=== PATIENT | male | born 1985 | race Two or more races ===

== ENCOUNTER 2020-10-13 14:28 | Emergency (ER) | payer OTHER ==
[~2020-10-13] VITALS: Ht 177.8 cm; Wt 96.1 kg
[2020-10-13 14:48] VITALS: BP 132/85
--- NOTE | 2020-10-13 15:45 | RAD ---
EXAM: Head and cervical spine CT without contrast. HISTORY: Fall. TECHNIQUE: Computed tomographic images of the head and cervical spine were obtained without intraveno us contrast. COMPARISON: None. FINDINGS: Head: There is no hemorrhage. There is no mass effect or midline shift. There is no hydrocephalus. Th e montgomery-white matter differentiation pattern is intact. There is no suspicious calvarial lesion. The o rbits are unremarkable. There is paranasal sinus mucosal thickening. The mastoid air cells are clear. Cervical spine: There is no significant listhesis. The vertebral bodies are normal in height and the disc spaces are preserved. There is no fracture or suspicious osseous lesion. There is mild endplate remodeling at multiple levels. There is minimal right foraminal stenosis at C2-C3. No central canal s tenosis is seen. IMPRESSION: No acute intracranial finding or evidence of acute cervical spine trauma. Electronically signed by: Tomasa Mcrae MD (10/13/2020 3:43 PM) [id number]
[2020-10-13 16:03] LABS: ALBUMIN 4.1 g/dL (3.4-5.0); ALBUMIN/GLOBULIN RATIO 1.1 (1.0-1.7); CALCIUM 9.2 mg/dL (8.5-10.1); GFR 86.6; TOTAL BILIRUBIN 0.5 mg/dL (0.2-1.0); TOTAL PROTEIN 7.7 g/dL (6.4-8.2)
[2020-10-13 16:11] LABS: BASO % 0 % (0-3); EOS # 0.1 x10^3/uL (0.0-0.7); EOS % 1 % (0-3); HEMOGLOBIN 15.7 g/dL (13.0-17.5); LYMPH # 1.1 x10^3/uL (1.0-4.8); LYMPH % 7 % (24-48); MEAN CORPUSCULAR HEMOGLOBIN 29 pg (25-35); MEAN CORPUSCULAR HGB CONC 34 g/dL (31-37); MEAN CORPUSCULAR VOLUME 84 fL (79-100); MONO # 0.9 x10^3/uL (0.0-1.1); MONO % 6 % (0-9); NEUT # 13.7 x10^3uL (1.8-7.7); NEUT % 86 % (31-73); PLATELET COUNT 349 x10^3/uL (140-400); RED BLOOD COUNT 5.48 x10^6/uL (4.30-5.70); RED CELL DISTRIBUTION WIDTH 12.3 % (11.5-14.5); WHITE BLOOD COUNT 15.8 x10^3/uL (4.0-11.0)
--- NOTE | 2020-10-13 16:26 | PHYS DOC ---
Past History Past Medical History: No Pertinent History, Seizure Additional Past Medical Histor: seizures when he was a child Past Surgical History: No Surgical History Alcohol Use: None General Adult EDM: Chief Complaint: SYNCOPE HPI: HPI: Patient is a 34-year-old male who presents after syncopal episode at work. 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 Patient states "I remember walking outside to leave in my car realized I had no memory of what had just happened". "I had a really bad headache and I vomited once". "I called my coworker and told him to come meet me because I was feeling uneasy on my feet". Friend states "he was acting kind of out of it and he had a big knot on the back of his head". Patient states he does not remember falling. Patient reports he had a tree of seizures when he was young and was taking Depakote but his doctor took him off the meds in 2012. Patient denies chest pain, shortness of breath. Denies any nausea or vomiting or headache at this time. Denies medical history. Review of Systems: Review of Systems: Constitutional: Denies fever or chills Eyes: Denies change in visual acuity HENT: Denies nasal congestion or sore throat Respiratory: Denies cough or shortness of breath Cardiovascular: Denies chest pain or edema GI: Denies abdominal pain, nausea, vomiting, bloody stools or diarrhea : Denies dysuria Musculoskeletal: Denies back pain or joint pain Integument: Denies rash Neurologic: Denies headache, focal weakness or sensory changes Endocrine: Denies polyuria or polydipsia Lymphatic: Denies swollen glands Psychiatric: Denies depression or anxiety Allergies: Allergies: Allergies Coded Allergies Type Severity Reaction Last Updated Verified No Known Drug Allergies 03/22/13 No Physical Exam: PE: Constitutional: Well developed, well nourished, no acute distress, non-toxic appearance. [] HENT: Normocephalic, atraumatic, hematoma to posterior head Eyes: PERRLA, EOMI, conjunctiva normal, no discharge. [] Neck: Normal range of motion, no tenderness, supple, no stridor. [] Cardiovascular:Heart rate regular rhythm, no murmur [] Lungs & Thorax: Bilateral breath sounds clear to auscultation [] Abdomen: Bowel sounds normal, soft, no tenderness, no masses, no pulsatile masses. [] Skin: Warm, dry, no erythema, no rash. [] Back: No tenderness, no CVA tenderness. [] Extremities: No tenderness, no cyanosis, no clubbing, ROM intact, no edema. [] Neurologic: Alert and oriented X 3, normal motor function, normal sensory function, no focal deficits noted. [] Psychologic: Affect normal, judgement normal, mood normal. [] Current Patient Data: Labs: Laboratory Tests Test 10/13/20 15:17 Sodium Level 143 mmol/L (136-145) Potassium Level 4.0 mmol/L (3.5-5.1) Chloride Level 105 mmol/L (98-107) Carbon Dioxide Level 29 mmol/L (21-32) Anion Gap 9 (6-14) Blood Urea Nitrogen 7 mg/dL (8-26) L Creatinine 1.0 mg/dL (0.7-1.3) Estimated GFR (Cockcroft-Gault) 86.6 BUN/Creatinine Ratio 7 (6-20) Glucose Level 113 mg/dL (70-99) H Calcium Level 9.2 mg/dL (8.5-10.1) Total Bilirubin 0.5 mg/dL (0.2-1.0) Aspartate Amino Transferase (AST) 35 U/L (15-37) Alanine Aminotransferase (ALT) 62 U/L (16-63) Alkaline Phosphatase 74 U/L (46-116) Total Protein 7.7 g/dL (6.4-8.2) Albumin 4.1 g/dL (3.4-5.0) Albumin/Globulin Ratio 1.1 (1.0-1.7) Vital Signs: Vital Signs Date Time Temp Pulse Resp B/P (MAP) Pulse Ox O2 Delivery O2 Flow Rate FiO2 10/13/20 14:48 98.1 78 18 132/85 (101) 99 EKG: EKG: [] Radiology/Procedures: Radiology/Procedures: [] Heart Score: C/O Chest Pain: No HEART Score for Chest Pain: HEART Score for Chest Pain Response (Comments) Value History Slighlty/Non-Suspicious 0 ECG Normal 0 Age < 45 0 Risk Factors No Risk Factors 0 Troponin < Normal Limit 0 Total 0 Risk Factors: Risk Factors: DM, Current or recent (<one month) smoker, HTN, HLP, family history of CAD, obesity. Risk Scores: Score 0 - 3: 2.5% MACE over next 6 weeks - Discharge Home Score 4 - 6: 20.3% MACE over next 6 weeks - Admit for Clinical Observation Score 7 - 10: 72.7% MACE over next 6 weeks - Early Invasive Strategies Course & Med Decision Making: Course & Med Decision Making Pertinent Labs and Imaging studies reviewed. (See chart for details) [] 34-year-old male presents after syncopal episode. Patient has a hematoma to his posterior head. Patient has no memory of falling. CT of head and neck ordered to rule out intracranial bleeding or skull fracture. Patient reports he does have a history of a seizure disorder when he was a child. Patient was taken off Depakote in 2012 and has not had a seizure since he was a child. CT of head and neck was negative. Anion gap of 9. Troponin is negative. Heart score of 0. All other labs unremarkable. Discussed results with patient. Gave patient strict return precautions. Splane to patient that he would need to follow-up with neurology. I gave patient phone number for Dr. Love's office. Patient agrees with discharge plan and is appreciative. Patient is hemodynami gilberto stable and able to walk out of the emergency room on his own. Dragon Disclaimer: Teodoro Disclaimer: This electronic medical record was generated, in whole or in part, using a voice recognition dictation system. Departure Departure: Impression: Primary Impression: Syncope Qualified Codes: R55 - Syncope and collapse Additional Impressions: Headache Qualified Codes: R51.9 - Headache, unspecified Nausea & vomiting Qualified Codes: R11.2 - Nausea with vomiting, unspecified Disposition: 01 HOME / SELF CARE / HOMELESS Condition: STABLE Referrals: FRANCHESCA NAYAK MD (PCP) Patient Instructions: Syncope Additional Instructions: You were seen in the emergency room after syncopal episode. CT of your head was negative. All of your labs were unremarkable. I am providing Dr. Love's (neurology) phone number for you to follow-up with him. Please return emergency room with worsening symptoms or any concerns you may have. [phone] EMERGENCY DEPARTMENT GENERAL DISCHARGE INSTRUCTIONS Thank you for coming to [facility] (ED) today and trusting us with you care. We trust that you had a positivie experience in our Emergency Department. If you wish to speak to the department management, you may call the director at [phone]. YOUR FOLLOW UP INSTRUCTIONS ARE FOLLOWS: 1. Do you have a private Doctor? If you do not have a private doctor, please ask for a resource list of physicians or clinics that may be able to assist you with fo llow up care. 2. The Emergency Physician has interpreted your x-rays. The X-Ray specialist will also review them. If there is a change in the findings, you will be notified in 48 hours when at all possible. 3. A lab test or culture has been done, your results will be reviewed and you will be notified if you need a change in treatment. ADDITIONAL INSTRUCTIONS AND INFORMATION: 1. Your care today has been supervised by a physician who is specially trained in emergency care. Many problems require more than one evaluation for a complete diagnosis and treatment. We recommend that you schedule your follow up appointment as recommended to ensure complete treatment of you illness or injury. If you are unable to obtain follow up care and continue to have a problem, or if your condition worsens, we recommend that you return to the ED. 2. We are not able to safely determine your condition over the phone nor are we able to give sound medical advice over the phone. For these safety reasons, if you call for medical advice we will ask you to come to the ED for further evaluation. 3. If you have any questions regarding these discharge instructions please call the ED at [phone]. SAFETY INFORMATION: In the interest of safety, wellness, and injury prevention; we encourage you to wear your sealbelt, if you smoke; quite smoking, and we encourage family to use a protecti ve helmet for bicycling and other sporting events that present an increased risk for head injury. IF YOUR SYMPTOMS WORSEN OR NEW SYMPTOMS DEVELOP, OR YOU HAVE CONCERNS ABOUT YOUR CONDITION; OR IF YOUR CONDITION WORSENS WHILE YOU ARE WAITING FOR YOUR FOLLOW UP APPOINTMENT; EITHER CONTACT YOUR PRIMARY CARE DOCTOR, THE PHYSICIAN WHOSE NAME AND NUMBER YOU WERE GIVEN, OR RETURN TO THE ED IMMEDIATELY. JOVANNY MITCHELL APRN Oct 13, 2020 16:26
[2020-10-13 16:49] LABS: % ATYL 1 % (0-0); % BANDS 23 % (0-9); % EOS 1 % (0-5); % LYMPHS 11 % (24-48); % MONOS 6 % (0-10); % SEGS 58 % (35-66)
[2020-10-13 16:54] LABS: PLT ESTIMATE ADEQUATE (ADEQUATE)
--- NOTE | 2020-10-13 20:45 | EKG ---
[address] [address] Test Date: 2020-10-13 Test Time: 16:32:41 Pat Name: EVERARDO TANG Department: Room: Gender: M [employer] Supervisor: GRACE : 1985 Requested By: JOVANNY MITCHELL Order Number: [id number] Reading MD: Measurements Intervals [place] Rate: 61 P: -33 HI: 132 QRS: 34 QRSD: 86 T: 14 QT: 384 QTc: 388 Interpretive Statements SINUS RHYTHM OTHERWISE NORMAL ECG RI6.02 No previous ECG available for comparison
== END 2020-10-13 16:54 | disposition home or self-care (01) ==
LOC: ER 14:28
DX: S00.03XA Contusion of scalp, initial encounter (principal); R55 Syncope and collapse; R51.9 Headache, unspecified; R11.2 Nausea with vomiting, unspecified; X58.XXXA Exposure to other specified factors, initial encounter; Y93.89 Activity, other specified; Y92.89 Other specified places as the place of occurrence of the external cause; Y99.8 Other external cause status
CPT/HCPCS: 36415; 70450; 72125; 80053; 84484; 85007; 85025; 93005; 99285

== ENCOUNTER 2021-05-18 13:31 | Emergency (ER) | payer OTHER ==
[~2021-05-18] VITALS: Ht 177.8 cm; Wt 94.0 kg
[2021-05-18 13:44] VITALS: BP 120/84
[2021-05-18] MEDS: ACETAMINOPHEN 500 MG TABLET PO ONE (14:00)
--- NOTE | 2021-05-18 14:05 | PHYS DOC ---
Past History Past Medical History: Seizure Additional Past Medical Histor: seizures when he was a child (ROBERT MINAYA APRN) Past Surgical History: No Surgical History (ROBERT MINAYA APRN) Alcohol Use: None (ROBERT MINAYA APRN) General Adult EDM: Chief Complaint: SEIZURE HPI: HPI: Patient is a 35-year-old male that presents today following a seizure. According to the friend that is at the bedside he said he heard his friend fall out of bed and he noted that he was having full body movement that resembled seizure-like activity. He states this happened around 115 today. Friend states that after the episode occurred which it lasted about a minute, patient was still unsteady on his feet and was kind of not acting right. They are here in the emergency department for further evaluation of this. Patient states he had a history of seizures as a child and was removed from his medication in 2012. He states that he was evaluated [address] Cerrato a neurologist who stated that he did not need to be back on his seizure medications at that time. Patient denies alcohol or drug use. Patient states he has not been sick over the last 24 to 48 hours. (ROBERT MINAYA APRN) Review of Systems: Review of Systems: Constitutional: Denies fever or chills Eyes: Denies change in visual acuity HENT: Denies nasal congestion or sore throat Respiratory: Denies cough or shortness of breath Cardiovascular: Denies chest pain or edema GI: Denies abdominal pain, nausea, vomiting, bloody stools or diarrhea : Denies dysuria Musculoskeletal: Denies back pain or joint pain Integument: Denies rash Neurologic: Seizure activity and headache denies focal weakness or sensory changes Endocrine: Denies polyuria or polydipsia Lymphatic: Denies swollen glands Psychiatric: Denies depression or anxiety (ROBERT MINAYA APRN) Current Medications: Current Meds: Current Medications Medications (Trade) Dose Ordered Sig/Devin Start Time Stop Time Status Last Admin Dose Admin Acetaminophen (Tylenol) 1,000 mg 1X ONCE 05/18/21 14:00 05/18/21 14:01 UNV (ROBERT MINAYA APRN) Allergies: Allergies: Allergies Coded Allergies Type Severity Reaction Last Updated Verified No Known Drug Allergies 03/22/13 No (ROBERT MINAYA APRN) Physical Exam: PE: Constitutional: Well developed, well nourished, no acute distress, non-toxic appearance. [] HENT: Normocephalic, inspection of palpation of the forehead noted abrasions to the forehead with some tenderness with palpation to the left side of the forehead. No crepitus or uncontrolled bleeding noted. Eyes: PERRLA, EOMI, conjunctiva normal, no discharge. [] Neck: Normal range of motion, no tenderness, supple, no stridor. [] Cardiovascular:Heart rate regular rhythm, no murmur [] Lungs & Thorax: Bilateral breath sounds clear to auscultation [] Abdomen: Bowel sounds normal, soft, no tenderness, no masses, no pulsatile masses. [] Skin: Abrasion noted to forehead warm, dry, no erythema, no rash. [] Back: No tenderness, no CVA tenderness. [] Extremities: No tenderness, no cyanosis, no clubbing, ROM intact, no edema. [] Neurologic: Alert and oriented X 3, normal motor function, normal sensory function, no focal deficits noted. [] Psychologic: Affect normal, judgement normal, mood normal. [] (ROBERT MINAYA APRN) Current Patient Data: Labs: Laboratory Tests Test 05/18/21 14:03 05/18/21 15:11 White Blood Count 6.0 x10^3/uL Red Blood Count 5.42 x10^6/uL Hemoglobin 15.8 g/dL Hematocrit 45.3 % Mean Corpuscular Volume 84 fL Mean Corpuscular Hemoglobin 29 pg Mean Corpuscular Hemoglobin Concent 35 g/dL Red Cell Distribution Width 12.2 % Platelet Count 377 x10^3/uL Neutrophils (%) (Auto) 48 % Lymphocytes (%) (Auto) 35 % Monocytes (%) (Auto) 9 % Eosinophils (%) (Auto) 8 % Basophils (%) (Auto) 1 % Neutrophils # (Auto) 2.9 x10^3uL Lymphocytes # (Auto) 2.1 x10^3/uL Monocytes # (Auto) 0.5 x10^3/uL Eosinophils # (Auto) 0.5 x10^3/uL Basophils # (Auto) 0.0 x10^3/uL Sodium Level 141 mmol/L Potassium Level 3.5 mmol/L Chloride Level 104 mmol/L Carbon Dioxide Level 23 mmol/L Anion Gap 14 Blood Urea Nitrogen 9 mg/dL Creatinine 1.0 mg/dL Estimated GFR (Cockcroft-Gault) 86.1 BUN/Creatinine Ratio 9 Glucose Level 146 mg/dL Calcium Level 8.9 mg/dL Total Bilirubin 0.6 mg/dL Aspartate Amino Transf (AST/SGOT) 25 U/L Alanine Aminotransferase (ALT/SGPT) 59 U/L Alkaline Phosphatase 63 U/L Total Protein 7.6 g/dL Albumin 4.0 g/dL Albumin/Globulin Ratio 1.1 Urine Opiates Screen Neg Urine Methadone Screen Neg Urine Barbiturates Neg Urine Phencyclidine Screen Neg Urine Amphetamine/Methamphetamine Neg Urine Benzodiazepines Screen Neg Urine Cocaine Screen Neg Urine Cannabinoids Screen Pos Urine Ethyl Alcohol Neg Current Medications Medications (Trade) Dose Ordered Sig/Devin Route PRN Reason Start Time Stop Time Status Last Admin Dose Admin Acetaminophen (Tylenol) 1,000 mg 1X ONCE PO 05/18/21 14:00 05/18/21 14:22 DC 05/18/21 14:00 Vital Signs: Vital Signs Date Time Temp Pulse Resp B/P (MAP) Pulse Ox O2 Delivery O2 Flow Rate FiO2 05/18/21 13:44 98.2 89 16 120/84 (96) 95 Room Air Vital Signs Date Time Temp Pulse Resp B/P (MAP) Pulse Ox O2 Delivery O2 Flow Rate FiO2 05/18/21 13:44 98.2 89 16 120/84 (96) 95 Room Air (ROBERT MINAYA APRN) EKG: EKG: [] (ROBERT MINAYA GLAZE GRINDER) Radiology/Procedures: Radiology/Procedures: [REASON: fall from bed and seizure PROCEDURE: CT HEAD AND MAXILLOFACIAL WO CT HEAD AND MAXILLOFACIAL WO History: Reason: fall from bed and seizure / Spl. Instructions: / History: . Pain Comparison: October 13, 2020 Technique: Noncontrast CT imaging was performed of the head and maxillofacial. Coronal and sagittal reconstructions were performed. Exposure: One or more of the following individualized dose reduction techniques were utilized for this examination: 1. Automated exposure control 2. Adjustment of the mA and/or kV according to patient size 3. Use of iterative reconstruction technique. Findings: Head CT: No intracranial hemorrhage. No mass effect. No hydrocephalus. Extra- axial spaces are unremarkable. Maxillofacial CT: No acute maxillofacial fracture. Orbits are unremarkable. Mild scattered paranasal sinus mucosal thickening. Mastoid air cells are clear. No acute calvarial fracture. Impression: Head CT: 1. No acute intracranial abnormality. Maxillofacial CT: 1. No acute maxillofacial fracture. Electronically signed by: Ten Osborne DO (05/18/2021 2:34 PM) [facility] (ROBERT MINAYA APRN) Heart Score: C/O Chest Pain: N/A Risk Factors: Risk Factors: DM, Current or recent (<one month) smoker, HTN, HLP, family history of CAD, obesity. Risk Scores: Score 0 - 3: 2.5% MACE over next 6 weeks - Discharge Home Score 4 - 6: 20.3% MACE over next 6 weeks - Admit for Clinical Observation Score 7 - 10: 72.7% MACE over next 6 weeks - Early Invasive Strategies (ROBERT MINAYA APRN) Course & Med Decision Making: Course & Med Decision Making Pertinent Labs and Imaging studies reviewed. (See chart for details) Did inform patient that since she had seizure activity today that he will need to restrain from driving for the next 6 months. Patient verbalized understanding of this. (ROBERT MINAYA APRN) Course & Med Decision Making I was the Attending physician on the above date of service of this patient. This patient was evaluated, examined, treated, and dispositioned from the emergency department by the mid-level practitioner. Although I was working at the time , no assistance was requested. Electronically signed, Mk Beckman DO (MK BECKMAN DO) Teodoro Disclaimer: Teodoro Disclaimer: This electronic medical record was generated, in whole or in part, using a voice recognition dictation system. (ROBERT MINAYA APRN) Departure Departure: Impression: Primary Impression: Seizure Disposition: 01 HOME / SELF CARE / HOMELESS Condition: STABLE Referrals: FRANCHESCA NAYAK MD (PCP) PADMINI CERRATO MD Patient Instructions: Seizure, Adult Additional Instructions: Follow-up tomorrow at 3 PM, May 19, [address] Cerrato for further evaluation of your seizure. Do not drive for the next 6 months due to your seizure activity Tylenol and/or ibuprofen as needed for pain ROBERT MINAYA APRN May 18, 2021 14:05 MK BECKMAN DO May 20, 2021 20:00
[2021-05-18 14:33] LABS: BASO % 1 % (0-3); EOS # 0.5 x10^3/uL (0.0-0.7); EOS % 8 % (0-3); HEMATOCRIT 45.3 % (39.0-53.0); HEMOGLOBIN 15.8 g/dL (13.0-17.5); LYMPH # 2.1 x10^3/uL (1.0-4.8); LYMPH % 35 % (24-48); MEAN CORPUSCULAR HEMOGLOBIN 29 pg (25-35); MEAN CORPUSCULAR HGB CONC 35 g/dL (31-37); MEAN CORPUSCULAR VOLUME 84 fL (79-100); MONO # 0.5 x10^3/uL (0.0-1.1); MONO % 9 % (0-9); NEUT # 2.9 x10^3uL (1.8-7.7); NEUT % 48 % (31-73); PLATELET COUNT 377 x10^3/uL (140-400); RED BLOOD COUNT 5.42 x10^6/uL (4.30-5.70); RED CELL DISTRIBUTION WIDTH 12.2 % (11.5-14.5)
--- NOTE | 2021-05-18 14:36 | RAD ---
CT HEAD AND MAXILLOFACIAL WO History: Reason: fall from bed and seizure / Spl. Instructions: / History: . Pain Comparison: October 13, 2020 Technique: Noncontrast CT imaging was performed of the head and maxillofacial. Coronal and sagittal r econstructions were performed. Exposure: One or more of the following individualized dose reduction techniques were utilized for thi s examination: 1. Automated exposure control 2. Adjustment of the mA and/or kV according to patient size 3. Use of iterative reconstruction technique. Findings: Head CT: No intracranial hemorrhage. No mass effect. No hydrocephalus. Extra-axial spaces are unrema rkable. Maxillofacial CT: No acute maxillofacial fracture. Orbits are unremarkable. Mild scattered paranasal sinus mucosal thickening. Mastoid air cells are pratik ar. No acute calvarial fracture. Impression: Head CT: 1. No acute intracranial abnormality. Maxillofacial CT: 1. No acute maxillofacial fracture. Electronically signed by: Ten Osborne DO (05/18/2021 2:34 PM) [facility]
[2021-05-18 14:38] LABS: CALCIUM 8.9 mg/dL (8.5-10.1); GFR 86.1; POTASSIUM 3.5 mmol/L (3.5-5.1)
[2021-05-18 14:40] LABS: ALBUMIN/GLOBULIN RATIO 1.1 (1.0-1.7); TOTAL BILIRUBIN 0.6 mg/dL (0.2-1.0); TOTAL PROTEIN 7.6 g/dL (6.4-8.2)
[2021-05-18 15:30] LABS: BARBITURATES NEG (NEG); BENZODIAZEPINES NEG (NEG); CANNABINOIDS POS (NEG); COCAINE NEG (NEG); METHADONE NEG (NEG); OPIATES NEG (NEG); PHENCYCLIDINE NEG (NEG)
[2021-05-18 15:33] LABS: AMPHETAMINE/METHAMPHETAMINE NEG (NEG)
== END 2021-05-18 15:15 | disposition home or self-care (01) ==
LOC: ER 13:33
DX: S00.81XA Abrasion of other part of head, initial encounter (principal); R56.9 Unspecified convulsions; W06.XXXA Fall from bed, initial encounter; Y93.89 Activity, other specified; Y92.89 Other specified places as the place of occurrence of the external cause; Y99.8 Other external cause status
CPT/HCPCS: 36415; 70450; 70486; 80053; 80307; 85025; 99284

== ENCOUNTER 2021-07-19 23:30 | Emergency (ER) | payer OTHER ==
[~2021-07-19] VITALS: Ht 177.8 cm; Wt 96.1 kg
[2021-07-19 23:30] VITALS: BP 142/75
[2021-07-20] MEDS ORDERED: IV NORMAL SALINE 1,000ML 1,000 ML IV ONE
[2021-07-20] MEDS ORDERED: levETIRAcetam 500 MG TABLET PO STA (00:11)
--- NOTE | 2021-07-20 00:12 | PHYS DOC ---
Past History Past Medical History: Seizure Additional Past Medical Histor: seizures Past Surgical History: No Surgical History Alcohol Use: None General Adult EDM: Chief Complaint: SEIZURE HPI: HPI: 35-year-old male presents via EMS after seizure at the gym. He was on a stairmaster when he lost consciousness and fell off. Reports over that he was having generalized rhythmic movements consistent with seizure. Patient does not remember anything until he was with EMS. Patient has a known seizure disorder and is on Keppra 1 g daily. His last dose was was a little over 24 hours ago. The patient also admits to taking some sort of water pill supplement from [facility]. His last seizure was a couple months ago. Patient does have some right-sided neck pain and is in a c-collar per EMS. He denies any headache, nausea, vomiting. He has no other complaints of pain at this time. Review of Systems: Review of Systems: Constitutional: Denies fever or chills Eyes: Denies change in visual acuity HENT: Neck pain Respiratory: Denies cough or shortness of breath Cardiovascular: Denies chest pain or edema GI: Denies abdominal pain, nausea, vomiting, bloody stools or diarrhea : Denies dysuria Musculoskeletal: Denies back pain or joint pain Integument: Denies rash Neurologic: Syncope, seizure. Denies headache, focal weakness or sensory conroy ges Endocrine: Denies polyuria or polydipsia Lymphatic: Denies swollen glands Psychiatric: Denies depression or anxiety Current Medications: Current Meds: Current Medications Medications (Trade) Dose Ordered Sig/[facility] Start Time Stop Time Status Last Admin Dose Admin Sodium Chloride 1,000 ml @ 1,000 mls/hr 1X ONCE 07/20/21 00:00 07/20/21 00:59 Allergies: Allergies: Allergies Coded Allergies Type Severity Reaction Last Updated Verified No Known Drug Allergies 07/19/21 No Physical Exam: PE: Constitutional: Well developed, well nourished, no acute distress, non-toxic appearance. [] HENT: Normocephalic, atraumatic, bilateral external ears normal, oropharynx moist, no oral exudates, nose normal. [] Eyes: PERRLA, EOMI, conjunctiva normal, no discharge. [] Neck: In a c-collar, no obvious bony tenderness. [] Cardiovascular: Heart rate regular rhythm, no murmur [] Lungs & Thorax: Bilateral breath sounds clear to auscultation [] Abdomen: Bowel sounds normal, soft, no tenderness, no masses, no pulsatile mas ses. [] Skin: Warm, dry, no erythema, no rash. [] Back: No tenderness, no CVA tenderness. [] Extremities: No tenderness, no cyanosis, no clubbing, ROM intact, no edema. [] Neurologic: Alert and oriented X 3, normal motor function, normal sensory function, no focal deficits noted. [] Psychologic: Affect normal, judgement normal, mood normal. [] Current Patient Data: Vital Signs: Vital Signs Date Time Temp Pulse Resp B/P (MAP) Pulse Ox O2 Delivery O2 Flow Rate FiO2 07/19/21 23:30 98.6 75 22 142/75 (97) 95 Room Air EKG: EKG: Sinus rhythm, rate 92, normal axis, no ST elevation or depression. [] Radiology/Procedures: Radiology/Procedures: [] Impressions: EXAM: CT head and cervical spine without contrast INDICATION: Seizure, fall COMPARISON: CT head 10/13/2020 TECHNIQUE: Axial CT imaging through the head and cervical spine without intravenous contrast. Sagittal and coronal reformats were obtained. One or more of the following individualized dose reduction techniques were utilized for this examination: 1. Automated exposure control 2. Adjustment of the mA and/or kV according to patient size 3. Use of iterative reconstruction technique. FINDINGS: CT head: The ventricles and sulci are normal. There is no intracranial hemorrhage, acute infarct, or mass lesion. Basal cisterns are clear. The skull and scalp are intact. Paranasal sinuses and mastoid air cells are clear. Globes and orbits are intact.. CT cervical spine: No acute fracture. Alignment is normal. The craniocervical junction and atlantoaxial interval are maintained. Disc spaces and facet joints are normal. Tiny central disc protrusion at C4-C5. No evidence of canal or foraminal narrowing. Prevertebral soft tissue is normal. IMPRESSION: 1. No acute intracranial abnormality. 2. No acute osseous abnormality of the cervical spine. Electronically signed by: Grisel Winter MD (07/20/2021 12:41 AM) [facility] DICTATED AND SIGNED BY: GRISEL WINTER MD DATE: 07/20/21 0037 CC: ALETHEA WILDE DO; FRANCHESCA NAYAK MD ~ Heart Score: C/O Chest Pain: N/A Risk Factors: Risk Factors: DM, Current or recent (<one month) smoker, HTN, HLP, family history of CAD, obesity. Risk Scores: Score 0 - 3: 2.5% MACE over next 6 weeks - Discharge Home Score 4 - 6: 20.3% MACE over next 6 weeks - Admit for Clinical Observation Score 7 - 10: 72.7% MACE over next 6 weeks - Early Invasive Strategies Course & Med Decision Making: Course & Med Decision Making Pertinent Labs and Imaging studies reviewed. (See chart for details) The patient has not had his evening dose of Keppra which is due now. We will give him that and an additional gram p.o. I have informed him that he should let his neurologist know about this episode so they can determine if he needs a dosing adjustment. Patient states verbal understanding. The patient's labs are unremarkable except for slightly low potassium and elevated lactic acid of 3.9. This is expected with seizure activity. Patient was given a liter normal saline. CTA of the head and cervical spine negative for acute findings. Patient is stable for discharge at this time. [] Dragon Disclaimer: Dragon Disclaimer: This electronic medical record was generated, in whole or in part, using a voice recognition dictation system. Departure Departure: Impression: Primary Impression: Seizure Disposition: HOME / SELF CARE / HOMELESS Condition: STABLE Referrals: FRANCHESCA NAYAK MD (PCP) Patient Instructions: Seizure, Adult ALETHEA WILDE DO Jul 20, 2021 00:12
--- NOTE | 2021-07-20 00:43 | RAD ---
EXAM: CT head and cervical spine without contrast INDICATION: Seizure, fall COMPARISON: CT head 10/13/2020 TECHNIQUE: Axial CT imaging through the head and cervical spine without intravenous contrast. Sagitta l and coronal reformats were obtained. One or more of the following individualized dose reduction techniques were utilized for this examinat ion: 1. Automated exposure control 2. Adjustment of the mA and/or kV according to patient size 3. Use of iterative reconstruction technique. FINDINGS: CT head: The ventricles and sulci are normal. There is no intracranial hemorrhage, acute infarct, or mass lesi on. Basal cisterns are clear. The skull and scalp are intact. Paranasal sinuses and mastoid air cells are clear. Globes and orbits are intact.. CT cervical spine: No acute fracture. Alignment is normal. The craniocervical junction and atlantoaxial interval are mono ntained. Disc spaces and facet joints are normal. Tiny central disc protrusion at C4-C5. No evidence of canal or foraminal narrowing. Prevertebral soft tissue is normal. IMPRESSION: 1. No acute intracranial abnormality. 2. No acute osseous abnormality of the cervical spine. Electronically signed by: Grisel Winter MD (07/20/2021 12:41 AM) [facility]
[2021-07-20 00:52] LABS: BASO % 0 % (0-3); EOS # 0.1 x10^3/uL (0.0-0.7); EOS % 1 % (0-3); HEMATOCRIT 42.3 % (39.0-53.0); HEMOGLOBIN 14.3 g/dL (13.0-17.5); LYMPH # 1.1 x10^3/uL (1.0-4.8); LYMPH % 11 % (24-48); MEAN CORPUSCULAR HEMOGLOBIN 29 pg (25-35); MEAN CORPUSCULAR HGB CONC 34 g/dL (31-37); MEAN CORPUSCULAR VOLUME 87 fL (79-100); MONO # 0.8 x10^3/uL (0.0-1.1); MONO % 7 % (0-9); NEUT # 8.6 x10^3uL (1.8-7.7); NEUT % 81 % (31-73); PLATELET COUNT 287 x10^3/uL (140-400); RED BLOOD COUNT 4.88 x10^6/uL (4.30-5.70); RED CELL DISTRIBUTION WIDTH 12.5 % (11.5-14.5); WHITE BLOOD COUNT 10.7 x10^3/uL (4.0-11.0)
[2021-07-20 00:59] LABS: CALCIUM 9.2 mg/dL (8.5-10.1); CREATININE 1.1 mg/dL (0.7-1.3); GFR 77.1; POTASSIUM 3.2 mmol/L (3.5-5.1)
[2021-07-20 01:13] LABS: ALBUMIN 3.9 g/dL (3.4-5.0); ALBUMIN/GLOBULIN RATIO 1.1 (1.0-1.7); TOTAL BILIRUBIN 0.5 mg/dL (0.2-1.0); TOTAL PROTEIN 7.4 g/dL (6.4-8.2)
--- NOTE | 2021-07-20 02:00 | RAD ---
EXAM: XR CHEST 1V 07/19/2021 12:45 AM CLINICAL INDICATION: Seizure, fall COMPARISON: None TECHNIQUE: AP view of the chest FINDINGS: The heart is normal in size. Lungs are well-expanded and clear. No consolidation, pleural effusion or pneumothorax. No acute osseous abnormality. IMPRESSION: No acute cardiopulmonary abnormality. Electronically signed by: Grisel Winter MD (07/20/2021 1:57 AM) [facility]
--- NOTE | 2021-07-20 03:51 | EKG ---
[address] [address] Test Date: 2021-07-19 Test Time: 23:50:02 Pat Name: EVERARDO TANG Department: Room: Gender: M [employer] Operator: MIRSOLAVA : 1985 Requested By: ALETHEA WILDE Order Number: [id number] Reading MD: Measurements Intervals [place] Rate: 92 P: 55 AL: 146 QRS: 32 QRSD: 86 T: 28 QT: 336 QTc: 420 Interpretive Statements SINUS RHYTHM NORMAL ECG RI6.02 No previous ECG available for comparison
--- NOTE | 2021-07-20 04:31 | EKG ---
[address] [address] Test Date: 2021-07-20 Test Time: 02:19:24 Pat Name: EVERARDO TANG Department: Room: Gender: M Junior Web Developer: MIROSLAVA : 1985 Requested By: ALETHEA WILDE Order Number: [id number] Reading MD: Measurements Intervals [place] Rate: 85 P: -47 AK: 118 QRS: -28 QRSD: 82 T: 0 QT: 366 QTc: 441 Interpretive Statements SINUS RHYTHM LEFTWARD AXIS LOW LIMB LEAD VOLTAGE NO SPECIFIC ECG ABNORMALITIES RI6.02 No previous ECG available for comparison
== END 2021-07-20 01:35 | disposition home or self-care (01) ==
LOC: ER 23:30
DX: G40.909 Epilepsy, unspecified, not intractable, without status epilepticus (principal); M54.2 Cervicalgia
CPT/HCPCS: 36415; 70450; 71045; 72125; 80053; 83605; 85025; 93005; 96360; 99285; J7030